=== PATIENT | female | born 1935 | race Caucasian/White ===

== ENCOUNTER 2017-09-13 19:44 | Emergency (ER) | payer MEDICARE, OTHER ==
[~2017-09-13] VITALS: Ht 170.2 cm; Wt 77.1 kg
--- OUTSIDE RECORDS SUMMARY | 2017-09-13 19:46 | XMS REPORT ---
Author Author [facility] Address Unknown Phone Unavailable Care Team Providers Care Waist Fitter Name Role Phone UNKNOWN, REFFERING PP Unavailable BONEFAS, SUZANNE Unavailable Unavailable Problems This patient has no known problems. Allergies, Adverse Reactions, Alerts This patient has no known allergies or adverse reactions. Medications This patient has no known medications. Encounters Start Date/Time End Date/Time Encounter Type Admission Type Attending Clinicians Care Facility Care Department Encounter ID 2016-12-19 10:10:00 Inpatient [facility] [id number] 2017-06-30 08:44:00 2017-06-30 08:44:00 Outpatient [facility] [id number] 2017-01-13 00:01:00 2017-01-13 00:01:00 Outpatient [facility] [id number] 2016-12-30 11:05:00 2016-12-30 11:05:00 Outpatient [facility] [id number] Results Test Description Test Time Test Comments Text Results Atomic Results Result Comments Partial Thromboplastin Time 2016-11-28 17:50:00 aPTT (test code=PTT) 35.10 seconds 24.39-37.25 Prothrombin [id number] 17:50:00* Test Item Value Reference Range Comments PT (test code=PT) 11.20 seconds 9.78-13.35 INR (test code=INR) 0.99 Ratio 0.6-1.2 CBC with [id number] 17:40:00* Test Item Value Reference Range Comments WBC (test code=WBC) 4.8 K/cumm 4.4-10.5 RBC (test code=RBC) 4.48 M/cumm 3.75-5.20 Hemoglobin (test code=HGB) 13.6 gm/dL 12.2-14.8 Hematocrit (test code=HCT) 43.4 % 36.5-44.4 MCV (test code=MCV) 96.8 fL 80-100 MCH (test code=MCH) 30.4 pg 27.0-32.5 MCHC (test code=MCHC) 31.4 g/dL 32.0-37.5 RDW (test code=RDW) 14.2 % 11.5-14.5 Platelet Count (test code=PLTCT) 212 K/cumm 140-440 MPV (test code=MPV) 10.5 fL Diff Method (test code=DIFFM) Auto Neutrophil (test code=NEUT) 57.4 % 36-70 Lymphocyte (test code=LYMPH) 31.5 % 12-44 Monocyte (test code=MONO) 6.3 % 0-11 Eosinophil (test code=EOS) 4.1 % 0-7 Basophil (test code=BASO) 0.7 % 0-2 Neutro Abs (test code=ANEUT) 2.7 K/cumm 1.6-7.4 Lymph Abs (test code=ALYMPH) 1.5 K/cumm 0.5-4.6 [place] Abs (test code=AMONO) 0.3 K/cumm 0.0-1.2 Eos Abs (test code=AEOS) 0.19 K/cumm 0.00-0.74 Baso Abs (test code=ABASO) 0.0 K/cumm 0.00-0.21 Basic Metabolic [id number] 17:39:00* Test Item Value Reference Range Comments Sodium (test code=NA) 140 mmol/L 135-145 Potassium (test code=K) 4.2 mmol/L 3.5-5.1 Chloride (test code=CL) 99 mmol/L 98-105 Carbon Dioxide (test code=CO2) 27 mmol/L 22-29 Glucose (test code=GLU) 76 mg/dL 70-115 Blood Urea Nitrogen (test code=BUN) 15 mg/dL 8-23 Creatinine (test code=CREAT) 0.7 mg/dL 0.5-0.9 Calcium (test code=CA) 9.9 mg/dL 8.3-10.5 BUN/Creatinine Ratio (test code=BCRATIO) 21.4 Anion Gap (test code=AGAP) 14 mmol/L 7-16 Estimated GFR (test code=GFR) >60 mL/min/1.73m2 eGFR (estimated Glomerular Filtration Rate) is an estimated value,calculated from the patient's serum creatinine using the MDRD equation.It is NOT the patient's actual GFR. The eGFR provides a more clinicallyuseful measure of kidney disease than serum creatinine alone.This calculation takes sex and race into account, if the informationis provided. If the race is not provided, and the patient isAfrican- [place], multiply by 1.212. If sex is not provided, and thepatient is female, multiply by 0.742. Results for patients <18 years ofage have not been validated by the MDRD study and should be interpretedwith caution.eGFR Result Interpretation:eGFR > or=60 is in the Normal RangeeGFR < 60 may mean kidney diseaseeGFR < 15 may mean kidney failureRanges recommended by the National Kidney Foundation,http://nkdep.nih.gov
--- OUTSIDE RECORDS SUMMARY | 2017-09-13 19:46 | XMS REPORT | Clinical Summary ---
Author Author [facility] Address Unknown Phone Unavailable Care Team Providers Care Manager Policy Name Role Phone PCP Unavailable Allergies Active Allergy Reactions Severity Noted Date Comments Codeine Itching 12/02/2012 When taken in large doses Penicillins 12/02/2012 Swelling to eyes Current Medications Prescription Sig. Disp. Refills Start End Date Status Date PARoxetine (PAXIL) 20 MG Take 10 mg by mouth every Active tablet other day. levothyroxine (SYNTHROID, Take 100 mcg by mouth Active LEVOTHROID) 100 MCG daily. tablet multivitamin Take 1 tablet by mouth Active (MULTIVITAMIN) per tablet daily. ferrous sulfate (IRON) Take 325 mg by mouth Active 325 (65 FE) MG tablet daily with breakfast. HYDROcodone-acetaminophen Take 1 tablet by mouth 60 tablet 0 03/25/20 Active (NORCO 5-325) 5-325 mg every 6 (six) hours as 13 per tablet needed. flecainide (TAMBOCOR) 50 Take 50 mg by mouth 2 Active MG tablet (two) times daily. traMADol (ULTRAM) 50 mg Take 50 mg by mouth every Active tablet 6 (six) hours as needed for Pain. furosemide (LASIX) 40 MG Take 40 mg by mouth 2 Active tablet (two) times daily. amLODIPine (NORVASC) 5 MG Take 5 mg by mouth daily. Active tablet methocarbamol (ROBAXIN) . 01/25/20 Active 750 MG tablet 16 Active Problems Problem Noted Date Bradycardia 09/12/2013 Shortness of breath 09/10/2013 Thigh hematoma 04/08/2013 Hematoma 04/08/2013 Hematoma of thigh 03/15/2013 Chest pain 02/19/2013 Atrial fibrillation 02/04/2013 Cellulitis 12/02/2012 Social History Tobacco Use Types Packs/Day Years Used Date Never Smoker Alcohol Use Drinks/Week oz/Week Comments No rare Sex Assigned at Date Recorded Not on file Last Filed Vital Signs Not on file Plan of Treatment Not on file Results Not on fileafter 09/12/2016
[2017-09-13] MEDS ORDERED: AMLODIPINE BESYL5 MG PO (20:02)
[2017-09-13] MEDS ORDERED: METOPROLOL TART25 MG PO (20:02)
[2017-09-13] MEDS ORDERED: LEVOTHYROXINE88 MCG PO (20:02)
[2017-09-13] MEDS ORDERED: FLECAINIDE ACE100 MG PO (20:02)
[2017-09-13] MEDS ORDERED: PAROXETINE HCL20 MG PO (20:02)
[2017-09-13] MEDS ORDERED: PANTOPRAZOLE 40 MG 10ML VIAL IV STA (20:03)
[2017-09-13] MEDS ORDERED: SODIUM CHLORIDE 0.9% 500ML 500 ML IV ONE (20:15)
[2017-09-13] MEDS ORDERED: ONDANSETRON HCL 4 MG ORAL DISINTEGRATING TAB PO ONE (20:15)
[2017-09-13] MEDS ORDERED: GLUCAGON FOR INJ 1 MG VIAL IV ONE (20:15)
[2017-09-13 20:55] LABS: BASOPHILS % 0.5 % (0.0-1.0); EOSINOPHILS % 0.5 % (0.0-6.0); HEMATOCRIT 40.8 % (34.2-44.1); HEMOGLOBIN 13.5 g/dL (12.0-16.0); LYMPHOCYTES # (AUTO) 1.1 (1.0-3.2); LYMPHOCYTES % 14.1 % (18.0-39.1); MEAN CORPUSCULAR HEMOGLOBIN 31.3 pg (28-32); MEAN CORPUSCULAR HGB CONC 33.1 g/dL (31-35); MEAN CORPUSCULAR VOLUME 94.7 fL (81-99); MONOCYTES # (AUTO) 0.6 (0.2-0.8); MONOCYTES % 8.1 % (4.4-11.3); NEUTROPHILS # (AUTO) 5.9 (2.1-6.9); NEUTROPHILS % 76.5 % (38.7-80.0); PLATELET COUNT 151 x10e3/uL (140-360); RED BLOOD COUNT 4.31 x10e6/uL (3.6-5.1); RED CELL DISTRIBUTION WIDTH 13.1 % (11.7-14.4)
[2017-09-13 21:01] LABS: INR 1.06; PARTIAL THROMBOPLASTIN TIME 26.7 seconds (23.8-35.5)
[2017-09-13 21:04] LABS: CLARITY,URINE SL CLOUDY (CLEAR); COLOR,URINE YELLOW (YELLOW)
[2017-09-13 21:05] LABS: BILIRUBIN,URINE NEGATIVE (NEGATIVE); KETONES,URINE NEGATIVE (NEGATIVE); LEUKOCYTE ESTERASE ,URINE 1+ (NEGATIVE); NITRITE,URINE NEGATIVE (NEGATIVE); PROTEIN,URINE DIPSTICK NEGATIVE (NEGATIVE); URINE UROBILINOGEN 0.2 mg/dL (0.2 - 1)
[2017-09-13 21:11] LABS: ALBUMIN 4.1 g/dL (3.5-5.0); ALBUMIN/GLOBULIN RATIO 1.3 (0.8-2.0); ANION GAP 16.3 mmol/L (8-16); CALCIUM 10.3 mg/dL (8.4-10.2); CREATININE, SERUM 0.99 mg/dL (0.57-1.11); MAGNESIUM 2.4 MG/DL (1.3-2.1)
[2017-09-13 21:13] LABS: POTASSIUM 5.3 mmol/L (3.5-5.1)
--- NOTE | 2017-09-13 21:17 | Diagnostic Imaging Report ---
EXAM: CHEST SINGLE (PORTABLE), AP 1 view INDICATION: Low heart rate COMPARISON: None FINDINGS: LINES/TUBES: None LUNGS: No consolidations or edema. PLEURA: No effusions or pneumothorax. HEART AND MEDIASTINUM: Normal size and contour. BONES AND SOFT TISSUES: No acute findings. IMPRESSION: No acute thoracic abnormality. Signed by: Dr. Enedina Cai M.D. on 09/13/2017 9:14 PM
[2017-09-13 21:19] LABS: EPITHELIAL CELLS,URINE MANY /LPF; WBC,URINE (MAN) >50 /HPF (0-5)
[2017-09-13 21:21] LABS: BACTERIA,URINE FEW /HPF; RBC,URINE 0-5 /HPF (0-5)
[2017-09-13 21:31] LABS: THYROID STIMULATING HORMONE 0.682 uIU/mL (0.350-4.940)
[2017-09-13 23:16] LABS: BILIRUBIN,URINE NEGATIVE (NEGATIVE); CLARITY,URINE CLEAR (CLEAR); COLOR,URINE YELLOW (YELLOW); KETONES,URINE NEGATIVE (NEGATIVE); LEUKOCYTE ESTERASE ,URINE NEGATIVE (NEGATIVE); NITRITE,URINE NEGATIVE (NEGATIVE); PROTEIN,URINE DIPSTICK NEGATIVE (NEGATIVE); URINE UROBILINOGEN 0.2 mg/dL (0.2 - 1)
[2017-09-13 23:37] LABS: BACTERIA,URINE MODERATE /HPF; EPITHELIAL CELLS,URINE FEW /LPF; WBC,URINE (MAN) 0-5 /HPF (0-5)
--- NOTE | 2017-09-14 00:16 | Diagnostic Imaging Report ---
EXAM: CT CHEST W INDICATION: Weak, low blood pressure, low O2 sats COMPARISON: None TECHNIQUE: Multidetector CT scanning of the chest was performed. Coronal and sagittal multiplanar reformations were obtained. PE protocol performed. IV Contrast: 100 cc Isovue-370 CTDIvol has been reviewed. It is below the limits set by the Radiation Protocol Committee (RPC). FINDINGS: LUNGS AND AIRWAYS: The trachea and major bronchi are unremarkable. No consolidations or edema. Septal thickening, mild traction bronchiectasis and bronchial thickening. Scattered atelectatic changes. PLEURA: Trace bilateral pleural effusions. HEART, MEDIASTINUM, VESSELS: The heart is at the upper limits of normal in size. No abnormal pericardial effusion. No thoracic aortic aneurysm. Incidental aberrant right subclavian artery. Subcentimeter prevascular lymph nodes. No evidence of a pulmonary embolism. UPPER ABDOMEN: The gallbladder has been removed. MUSCULOSKELETAL: No acute findings. IMPRESSION: 1. No evidence of a pulmonary embolism. 2. Mild fluid overload with interstitial edema and trace bilateral pleural effusions. Signed by: Dr. Enedina Cai M.D. on 09/14/2017 12:13 AM
--- NOTE | 2017-09-14 00:22 | Diagnostic Imaging Report ---
EXAM: CT ABDOMEN AND PELVIS with IV CONTRAST INDICATION: Low blood pressure COMPARISON: None TECHNIQUE: The abdomen and pelvis were scanned using a multidetector helical scanner. Coronal and sagittal reformations were obtained. Routine protocol performed. IV Contrast: 100 cc Isovue 370 administered for chest, abdomen and pelvis CT Oral Contrast: None CTDIvol has been reviewed. It is below the limits set by the Radiation Protocol Committee (RPC). FINDINGS: LOWER THORAX: Septal thickening, bibasilar atelectasis and trace bilateral pleural effusions. LIVER: No masses BILIARY: Cholecystectomy. No abnormal ductal dilation. SPLEEN: No masses PANCREAS: No masses ADRENALS: No nodules KIDNEYS: Symmetric perfusion. No enhancing masses. No hydronephrosis. GI TRACT: No distention, wall thickening or evidence of obstruction. VESSELS: Mild atherosclerotic changes of the abdominal aorta without aneurysm. PERITONEUM/RETROPERITONEUM: No free air or fluid LYMPH NODES: No lymphadenopathy REPRODUCTIVE ORGANS: Nonspecific 4 cm right adnexal cyst. BLADDER: Decompressed by Hinojosa catheter. SOFT TISSUES: Pelvic pessary ring. BONES: No suspicious bone lesions. Severe degenerative changes predominantly at L5/S1 with grade 1/2 anterolisthesis. IMPRESSION: No acute findings in the CT of the abdomen or pelvis. Incidental 4 cm right adnexal cyst. Signed by: Dr. Enedina Cai M.D. on 09/14/2017 12:19 AM
[2017-09-14] MEDS ORDERED: SODIUM CHLORIDE 0.9% 50ML 50 ML ONE (05:31)
[2017-09-14] MEDS ORDERED: IOPAMIDOL 370 MG/ML 200 ML INFUS..BTL INJ ONE (05:32)
== END 2017-09-14 02:20 | disposition other institution (70) ==
LOC: ER 19:44
DX: R42 Dizziness and giddiness (principal); R09.02 Hypoxemia; R00.1 Bradycardia, unspecified; I50.9 Heart failure, unspecified; I48.0 Paroxysmal atrial fibrillation; J45.909 Unspecified asthma, uncomplicated; B17.9 Acute viral hepatitis, unspecified
CPT/HCPCS: 36415; 51700; 71045; 71260; 74177; 80053; 81001; 82550; 82553; 83605; 83735; 83880; 84443; 84484; 85025; 85610; 85730; 87040; 87086; 93005; 99284; J1610; J7040; Q9967